=== PATIENT | male | born 1995 | race Caucasian/White ===

== ENCOUNTER 2019-11-11 12:17 | Emergency (ER) | payer OTHER ==
[~2019-11-11] VITALS: Ht 180.3 cm; Wt 61.2 kg
--- NOTE | 2019-11-11 12:45 | NUR ---
patient came in to ther er c/o LFA lac. on room air, breathing evenly and unlabored. kept comfortable, will continue to monitor accordingly.
[2019-11-11] MEDS ORDERED: LIDOCAINE 1%-EPI 1:100,000 20 ML VIAL ONE (12:53)
[2019-11-11] MEDS ORDERED: TDAP [DIPH/PERTUSSIS/TET] 0.5 ML VIAL IM ONE ×2 (13:00→13:05)
[2019-11-11] MEDS ORDERED: CEFTRIAXONE 500 MG VIAL ONE (14:28)
[2019-11-11] MEDS ORDERED: LIDOCAINE /MPF 1% VIAL 5 ML VIAL ONE (14:29)
[2019-11-11] MEDS ORDERED: CEFTRIAXONE 500 MG VIAL IM ONE (14:30)
[2019-11-11 14:52] VITALS: BP 115/67
--- NOTE | 2019-11-11 14:52 | NUR ---
Patient discharged to home in stable condition. Written and verbal after care instructions given. Patient verbalizes understanding of instruction.
== END 2019-11-11 14:52 | disposition home or self-care (01) ==
LOC: ER 12:21
DX: S51.822A Laceration with foreign body of left forearm, initial encounter (principal); K21.9 Gastro-esophageal reflux disease without esophagitis; W25.XXXA Contact with sharp glass, initial encounter; Y93.89 Activity, other specified; Y92.89 Other specified places as the place of occurrence of the external cause; Y99.8 Other external cause status
CPT/HCPCS: 12004; 73090; 90471; 90715; 96372; 99284; A6403 ×2; J0696; J3490 ×2